=== PATIENT | male | born 1990 | race African-American/Black ===

== ENCOUNTER 2016-05-14 07:53 | Emergency (ER) ==
[2016-05-14 08:00] VITALS: BP 140/72
--- NOTE | 2016-05-14 08:18 | PROVIDER DOCUMENTATION ---
HPI-Respiratory General - General Chief Complaint: Cold Symptoms Stated Complaint: FLU LIKE SX/PNEUMONIA Time Seen by Provider: 05/14/16 08:12 Source: patient Allergies/Adverse Reactions: Patient Allergies Allergy/AdvReac Type Severity Reaction Status Date / Time No Known Allergies Allergy Verified 05/14/16 08:00 Home Medications: Home Medication List Medication Instructions Recorded Confirmed Last Taken Type Guaifenesin/Codeine [Robitussin-AC] 10 ml PO Q4H PRN PRN #8 oz 05/14/16 Unknown Rx - History of Present Illness-Resp Nature of Presenting Problem: coughing bodyache chills chest congestion Quality of Pain: reports: aching Severity in ED: reports: mild Onset/Duration: reports: 24 hours ago Timing: reports: still present Context: reports: recent URI Exposure: reports: unknown cause Cough Quality/Degree: reports: productive cough Episode Frequency: occasional episodes Current Respiratory Medication Therapy: Initiated none Modifying Factors: improves with: coughing. worse with: exertion, deep breath Associated Symptoms: reports: shortness of breath, sore throat, wheezing Similar Symptoms Previously?: Yes Recently seen or treated by another doctor?: No Review of Systems - Adult - REVIEW OF SYSTEMS - ADULT Constitutional: reports: chills, fever Eyes: reports: no symptoms reported Ears, Nose, Mouth & Throat: reports: hoarseness Cardiovascular: reports: chest pain Respiratory: reports: cough, wheezing. denies: hemoptysis, pleurisy Gastrointestinal: reports: vomiting. denies: abdominal pain, nausea Genitourinary: denies: dysuria, discharge, frequency Musculoskeletal: reports: no symptoms reported Integumentary: reports: no symptoms reported Neurological: reports: headache/migraines Psychiatric: reports: no symptoms reported Endocrine: reports: no symptoms reported Hematologic/Lymphatic: reports: no symptoms reported Allergic/Immunologic: reports: no symptoms reported Past History - Adult - PAST MEDICAL HISTORY-ADULT Review of Records: reports: Nursing Assessment Review, Medications Reviewed, Social history reviewed & non-contributory. Major Childhood Illnesses: reports: denies history Cardiovascular: reports: denies history Respiratory: reports: denies history Gastrointestinal: reports: denies history Genitourinary: reports: denies history Musculoskeletal: reports: denies history Neurological: reports: denies history Psychiatric: reports: denies history Endocrine/Immune: reports: denies history Other Conditions: reports: denies history - PRIOR SURGERIES/PROCEDURES Surgical/Procedure History: reports: none - SOCIAL HISTORY Smoking: cigarettes Physical Exam-General - PHYSICAL EXAM-ADULT Initial Vital Signs Reviewed: Yes - CONSTITUTIONAL General Appearance: appears well, alert, no apparent distress - EYES Eyes: PERRL/EOMI, pink conjunctivae - HEAD, EARS, NOSE, MOUTH & THROAT HENMT: TM obscurred by cerumen - NECK Neck: supple. negative: lymphadenopathy - RESPIRATORY Respiratory: lungs clear - CARDIOVASCULAR Cardiovascular: regular rate, rhythm - GASTROINTESTINAL (ABDOMEN) Abdominal Exam: soft - LYMPHATIC Lymphatic: no adenopathy - MUSCULOSKELETAL Back Exam: normal inspection, no CVA tenderness Extremity: non-tender - SKIN Integumentary: normal color, normal turgor - NEUROLOGIC Neurologic: grossly normal - PSYCHIATRIC Psych/Mental Status: oriented x 3 Progress - PLAN OF CARE/RESULTS Progress/Plan/Lab Results: Laboratory Tests 05/14/16 08:00 Influenza A (Rapid) NEGATIVE Influenza B (Rapid) NEGATIVE - XRAY 1 XRAY Study: Chest Impression: Normal Departure - Departure Time of Disposition Order: 08:54 DIAGNOSIS: URI (upper respiratory infection) Qualifiers: URI type: unspecified viral URI Qualified Code(s): J06.9 - Acute upper respiratory infection, unspecified; B97.89 - Other viral agents as the cause of diseases classified elsewhere Disposition: HOME 01 Certified Medical Emergency: Emergent Condition: Stable Additional Instructions: ED Follow Up Instructions: You have been treated by a care provider in the Emergency Department. These instructions are being provided to you so you can have an understanding of how to care for yourself upon discharge. Upon discharge from the Emergency Department, you are responsible for making arrangements for follow-up care by a physician of your choice. Take all prescribed medications as directed. Return to the Emergency Department immediately for any new or worsening symptoms. You may call the Physician Referral phone number at [phone] to obtain a list of Physicians who are taking new patients. Prescriptions: Guaifenesin/Codeine [Robitussin-AC] 10 ml PO Q4H PRN PRN #8 oz PRN Reason: Cough Referrals: None,PCP [Primary Care Provider] - Forms: Return to School/Parent Work
--- NOTE | 2016-05-14 08:28 | Diag Imaging Result Document ---
PROCEDURE NAME: CHEST-2 VIEWS - 05/14/2016 FRONTAL AND LATERAL CHEST, TWO VIEWS: COMPARISON: No comparison films. FINDINGS: The lungs are well expanded. The heart is not enlarged. The vessels are not distended. There are no infiltrates. No pleural effusions. IMPRESSION: No acute abnormality. No pneumonia.
== END 2016-05-14 09:05 | disposition home or self-care (01) ==
LOC: P.ED 07:53
DX: J06.9 Acute upper respiratory infection, unspecified (principal); R05 Cough; R06.02 Shortness of breath; R06.2 Wheezing; J02.9 Acute pharyngitis, unspecified; R50.9 Fever, unspecified; R49.0 Dysphonia; R11.10 Vomiting, unspecified; R51 Headache
CPT/HCPCS: 71020; 87804